=== PATIENT | female | born 1980 ===

== ENCOUNTER 2017-02-25 07:00 | Inpatient (IN) | payer MEDICAID ==
[2017-02-12 14:30] VITALS: BMI 38.2
[2017-02-25] MEDS ORDERED: Succinylcholine 200 mg/10 ml Inj IV ONE (08:03)
[2017-02-25] MEDS ORDERED: Propofol 10 mg/ml Inj (20 ML) ONE (08:03)
[2017-02-25] MEDS ORDERED: ePHEDrine 50 mg/ml Inj ONE (08:03)
[2017-02-25] MEDS ORDERED: Midazolam 2 MG/2 ML VIAL ONE (08:03)
[2017-02-25] MEDS ORDERED: Rocuronium 10 mg/ml (5 ml) ONE (08:03)
[2017-02-25] MEDS ORDERED: Phenylephrine 10 mg/ml Inj ONE (08:17)
[2017-02-25] MEDS ORDERED: Neostigmine Methylsulfate 3mg/3ml Syringe IV ONE ×2 (08:21→12:23)
[2017-02-25] MEDS ORDERED: Neostigmine Methylsulfate 2 MG/2 ML ML IV ONE (08:21)
[2017-02-25] MEDS ORDERED: ceFAZolin IV 1 gm in Dextrose 2 GM/100 ML BAG IVPB ONE (08:30)
[2017-02-25] MEDS ORDERED: Bupivacaine HCl 0.5% PF (30 ml) Inj ONE (08:30)
[2017-02-25] MEDS ORDERED: Lactated Ringer's 1,000 ML IV ONE ×3 (09:40→12:55)
[2017-02-25] MEDS ORDERED: Dexamethasone 4 mg/1 ml ONE (10:11)
[2017-02-25] MEDS ORDERED: Sevoflurane - Inhalation Anesthetic Liq (250 ml) ONE (10:34)
[2017-02-25] MEDS ORDERED: APROTININ/FIBRINOGEN(TISSEEL) ONE (11:15)
[2017-02-25] MEDS ORDERED: Albuterol 0.083% Inhal Sol (2.5 mg/3 mL) UD INH PRN (11:58)
[2017-02-25] MEDS: HYDROmorphone 0.5 mg/0.5 ml ISec IVP PRN ×4 (12:10→12:50)
--- NOTE | 2017-02-25 13:08 | PCM.SURG1 ---
Surgeon's Initial Post Op Note - Surgeon's Notes Surgeon: adriana hdz md Hot Stick Man: ervin villaseñor Type of Anesthesia: General Endo, Local Pre-Operative Diagnosis: chronioc pelvic pain. abnormal uterine bleeding. prolapse uterus. didelphis uterus Operative Findings: stage 4 endometriosis. frozen abdomin. enlarge uterus. normal rigtht ovary. left ovary with multiple small cysts Post-Operative Diagnosis: chronioc pelvic pain. abnormal uterine bleeding. prolapse uterus. didelphis uterus. stage 4 endometriosis deep endometriosis Operation Performed: Total robotic hysterectomy bilateral salpingectomy. uterosacral ligament suspenssion. extensive excision of endometriosis. ovarian drilling. extensive lysis of adhession enterolysis. cystoscopy Specimen/Specimens Removed: uterus cervix tubes. endometriosis Estimated Blood Loss: EBL {In ML}: 10 Blood Products Given: N/A Drains Used: No Drains Post-Op Condition: Good Date of Surgery/Procedure: 02/25/17 Time of Surgery/Procedure: 11:00
[2017-02-25] MEDS ORDERED: HYDROmorphone 0.5 mg/0.5 ml ISec IVP PRN (15:03)
[2017-02-25] MEDS ORDERED: Oxycodone/Acetaminophen 5/325 mg Tab PO PRN (16:16)
[2017-02-25] MEDS: ceFAZolin IV 2 gm in Dextrose 2 GM/50 ML BAG IVPB SCH (17:37)
[2017-02-25] MEDS: Lactated Ringer's 1,000 ML IV SCH (17:38)
--- NOTE | 2017-02-25 20:47 | PCM.OP ---
Operative Report - Operative Report Date of Surgery/Procedure: 02/25/17 Time of Surgery/Procedure: 11:00 Surgeon: Jcarlos Hare MD Solar Lab Technician: Lorna MCCORD Anesthesia/Sedation: Gen. anesthesia with ET tube Pre-Operative Diagnosis: Chronioc pelvic pain. Abnormal uterine bleeding. Prolapse uterus. Didelphys uterus Post-Operative Diagnosis: Chronioc pelvic pain. Abnormal uterine bleeding. Prolapse uterus. Didelphys uterus. stage 4 endometriosis / deep endometriosis. polycystic ovarian syndrome Indication for Surgery: worsening chronic pelvic pain and abnormal uterine bleeding as well as associated prolapse uterus Operative Findings: Extensive and severe endometriosis throughout including deep endometriosis along the LEFT pelvic sidewall. 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 Polycystic ovarian syndrome. Normal bladder anatomy as cystoscopy at the end of the procedure Procedure/Operation Description: Detailed Operative Report. This is a 36 years old female with symptomatic enlarged uterine prolapse, severe pelvic pain, abnormal uterine bleeding history of didelphys uterus. The patient completed an extensive preoperative workup, which included an ultrasound , as well as a Pap smear, chemistry and hematology studies. The patient reported these symptoms and problems as debilitating, and adversely affecting her quality of life. Following a period of failed conservative management, and patient decision was made to proceed with a more invasive approach to address the above noted problems. A decision was finally made to proceed with a total robotic assisted hysterectomy, possible bilateral salpingoophorectomy, and vaginal vault suspension. A detailed description of this robotic procedure was given to the patient, all risks and benefits of the surgical modality was reviewed, printed material was also given to the patient regarding robotic surgery. The patient fully understood all the risks and benefits and elected to proceed with this proposed procedure. The patient expressed strong desire for this definitive surgical procedure, understanding that she cannot conceive or carry any pregnancies in the future. The patient had absolutely without any doubts, any desires for future pregnancies. After proper consent was obtained from the patient was taken to the operating room, proper patient identification was completed. She was placed in dorsal lithotomy position; general anesthesia was induced without difficulty. Her legs were placed in adjustable Srinivasa stirrups. Careful attention was placed to ovoid over-flexion or over-rotation of the lower extremities at the hip or the knee joints. She was prepped and draped appropriately for robotic assisted hysterectomy. Eastman catheter was inserted under sterile conditions. A weighted speculum was placed in the vagina , the cervix was noted to be severely displaced to the RIGHT side, anterior lip of cervix was grasped with a tenaculum, and a V-care uterine manipulator was inserted through the cervix and secured. The weighted speculum and tenaculum were removed from the patient's vagina and attention was turned to the patient' s abdomen. Local anesthetic solutions of 0.25% Marcaine with epinephrine were utilized to infiltrate the skin prior to all abdominal skin incisions. A total of 20 mL of 0.25% Marcaine was utilized throughout the procedure. While tenting the abdominal wall, a Veres needle was inserted through the umbilicus and a pneumoperitoneum was obtained. Intraperitoneal access was verified with a drop in intraperitoneal pressure. Approximately at the umbilical fold, in the midline, a 1 cm incision was made with a scalpel and a trocar and sleeve were introduced. A robotic camera was inserted and an initial survey of the patient's abdomen revealed an enlarged bulky uterus, boggy in appearance suspicious for adenomyosis and possible fibroids. The uterus appeared asymmetrical with significant enlargement of the LEFT horn. Extensive endometriosis disease was noted throughout the pelvic cavity with a lesions along the posterior cul-de-sac extending to the pelvic brim and above. Of note , deep endometriosis were noted on the LEFT pelvic sidewall in close proximity to the ureter and the great vessels within the LEFT adnexa. Extensive endometriosis lesions in close proximity to the LEFT ovary causing severe adhesions to the pelvic sidewall and to the uterus engulfing the LEFT fallopian tube. Similarly, extensive destructive endometriosis lesions were noted on the opposite pelvic sidewall involving the opposite ovary. Extensive endometriosis lesions involving multiple loops of bowel as well as the rectum was noted. The RIGHT ovary appeared polycystic, the LEFT ovary appeared enlarged with multiple simple-like cysts, a picture consistent with PCOS. The patient was placed in Trendelenburg position ready for a da Johana robotic system to be docked. 3 robotic ports were utilized for this procedure. The first robotic port was placed on the patient's left side approximately 5 cm superior to the superior crest on the patient's left side, the second robotic port was placed 8 cm right lateral to the camera port and the third robotic port was placed approx. 5 centimeters superior to the right superior iliac crest. All ports were aligned along the same horizontal line on the abdomen in an arch like fashion. An assistant spa manager port was placed 8 cm left lateral to the camera port in the midline. For the assistant spa manager port we utilized the [employer] trocar system. All trocars were inserted under direct visualization. The placement of the trocars was all accomplished under careful and meticulous placement under direct visualization. Following the placement of all trocars, the da Johana robotic system was docked in a parallel method without difficulty. The following instruments were utilized for this procedure: the bipolar cautery device, a monopolar rigo and finally a ProGrasp. Prior to the start of the hysterectomy, extensive and meticulous lysis of peritoneal adhesions as well as bowel adhesions was achieved utilizing sharp and blunt dissection. Extensive excisions of multiple endometriosis lesions, wide excisions of these lesions was accomplished utilizing sharp and blunt dissections. All excisions were labeled appropriately and sent to pathology. Due to the close proximity of this endometriosis lesions both ureters, the retroperitoneum was entered along the pelvic sidewall and the ureters were explored from the pelvic brim all the way down towards the uterocervical junction. Both ureters and their courses were visualized, peristalsis bilaterally. Both ovaries which appeared to be polycystic enlarged were drilled decompressed volume of clear fluid contained within multiple cysts. Meticulous slow and careful dissection was needed to excise and separate the LEFT ovary and tube from the pelvic sidewall in close proximity to the LEFT iliac vessels as well as LEFT ureter. Both fallopian tubes were transected along the mesosalpinx to be removed over the uterus and cervix en bloc. On the patient's right side, the utero-ovarian and round ligaments were identified cauterized and transected, the broad ligament was divided all the way down to the utero cervical junction bladder flap was then created by transecting the visceroperitoneum over the bladder reflection. In a similar fashion, the left round ligament, utero-ovarian ligament and broad ligament were cauterized sealed and transected, taken down to the level of the cervical uterine junction. Uterine vessels on both sides were sealed and transected. The Uterosacral ligaments were sealed and transected. The monopolar rigo and PK were utilized to complete the colpotomy incision around the care vaginal ring. Excellent hemostasis was noted. The uterus, cervix and fallopian tubes were delivered transvaginally through the colpotomy incision and sent to pathology for permanent analysis. The colpotomy incision was closed with 2-0 v LOC in a continuous fashion with excellent hemostasis. The vaginal vault suspension was achieved by suspending the vaginal cuff to the base of the uterosacral ligaments bilaterally. For uterosacral ligament suspension portion of the procedure, the ureters were once again identified to avoid possible compromise or kinking while suspending the vaginal vault. A 2-0 permanent suture material ([place]) was utilized to suspend the uterosacral ligaments from the base to the vaginal vault cuff incision including both anterior and posterior aspect of the colpotomy incision. Utilizing a 3-0 Monocryl suture, the peritoneum over the colpotomy incision and uterosacral ligaments was re- approximated in a continuous fashion. The abdomen was throughout irrigated and cleared of all clots and debris. FloSeal as well as Interceed was applied to the incision sites. Excellent hemostasis was again noted. All robotic and laparoscopic instruments removed under direct visualization. The robotic arms were undocked, and a da Johana robotic system was wheeled away from the patient' s bedside. Both assistant spa manager and camera ports were closed at the fascial layer utilizing a 2-0 Vicryl suture material in interrupted fashion. Pneumoperitoneum was reduced and all skin incisions were closed utilizing 4-0 Monocryl in a subcutaneous fashion. Dermabond was applied to all incisions. At the conclusion of this hysterectomy, a diagnostic cystoscopy was completed. The Eastman catheter was removed; the bladder was distended with approximately 350 cc of normal saline. A 30 cystoscope was introduced and a survey of the bladder anatomy was completed. The base, and the dome of the bladder appeared normal, both ureteral orifices appeared normal and were efluxing urine freely. The urethra appeared normal. A Eastman catheter was reinserted. Vaginal packing was inserted to be removed the next morning. Patient emerged from general anesthesia without difficulty, and was taken to recovery room in stable condition. Prior to incision the patient received antibiotics, prior to closure sponge lap and needle counts were correct x2. Estimated Blood Loss: 10 Blood Replaced: none Sponge/Instrument Count: sponge lap and needle counts were correct x2 Drains: none Complications: none Specimen: uterus cervix fallopian tubes and endometriosis Discharge & Condition: discharge planning postoperative day #1 is met criteria
[2017-02-25 22:06] VITALS: RESP 20
[2017-02-26] MEDS: ceFAZolin IV 2 gm in Dextrose 2 GM/50 ML BAG IVPB SCH ×2 (00:36→08:34)
[2017-02-26] MEDS: Lactated Ringer's 1,000 ML IV SCH (06:26)
[2017-02-26 06:28] LABS: BASO # 0.1 K/uL (0.0-0.2); BASO % 0.6 % (0.0-2.0); EOS % 0.3 % (0.0-4.0); HEMOGLOBIN 12.7 g/dL (12.0-16.0); LYMPH # 1.7 K/uL (1.0-4.3); LYMPH % 18.3 % (20.0-40.0); MEAN CELL VOLUME 89.4 fl (81.0-99.0); MEAN CORPUSCULAR HEMOGLOBIN 29.8 pg (27.0-31.0); MEAN CORPUSCULAR HGB CONC 33.3 g/dL (33.0-37.0); MEAN PLATELET VOLUME 8.5 fl (7.2-11.7); MONO # 0.8 K/uL (0.0-0.8); MONO % 8.9 % (0.0-10.0); NEUT # 6.6 K/uL (1.8-7.0); NEUT % 71.9 % (50.0-75.0); RBC 4.25 Mil/uL (3.80-5.20); RED CELL DISTRIBUTION WIDTH 12.7 % (11.5-14.5); WHITE BLOOD COUNT 9.2 K/uL (4.8-10.8)
[2017-02-26 06:40] LABS: BLOOD UREA NITROGEN 10 mg/dl (7-17); CALCIUM 9.2 mg/dL (8.4-10.2); GFR AFRICAN-AMERICAN > 60; GFR NON-AFRICAN AMERICAN > 60
[2017-02-26] MEDS ORDERED: Oxycodone/Acetaminophen 5/325 mg Tab PO PRN (14:45)
--- NOTE | 2017-02-26 14:50 | CP.PCM.PN ---
Subjective - Date & Time of Evaluation Date of Evaluation: 02/26/17 Time of Evaluation: 14:47 - Subjective Subjective: Patient states pain is controlled with pain medication. She says that she feels a little itchy with the dilaudid, but no rash, no difficulty breathing. She says this is the same feeling that she gets when she takes percocet. She never got a rash or had any difficulty breathing from percocet. This appears to be side effect of the medication, but not a true allergy. Patient tolerated dilaudid well. Patient requests percocet for pain over non narcotic alternatives due to level of pain. Denies CP/SOB/dizziness. Objective - Vital Signs/Intake and Output Vital Signs (last 24 hours): Temp Pulse Resp BP Pulse Ox 98.7 F 78 20 107/63 100 02/26/17 08:25 02/26/17 08:25 02/26/17 08:25 02/26/17 08:25 02/26/17 08:25 Intake and Output: 02/26/17 02/26/17 06:59 18:59 Intake Total 1800 Output Total 2050 Balance -250 - Medications Medications: Current Medications Albuterol Sulfate (Albuterol 0.083% Inhal Samantha (2.5 Mg/3 Ml) Ud) 2.5 mg INH ONCE PRN PRN Reason: Wheezing Hydromorphone HCl (Dilaudid) 2 mg IVP Q3H PRN PRN Reason: Pain, severe (8-10) Last Admin: 02/26/17 09:48 Dose: 2 mg Cefazolin Sodium/Dextrose (Ancef Iv 2 Gm Duplex) 2 gm in 50 mls @ 50 mls/hr IVPB Q8 TEE PRN Reason: Protocol Last Admin: 02/26/17 08:34 Dose: 50 mls/hr Lactated Ringer's (Lactated Ringer's) 1,000 mls @ 100 mls/hr IV .Q10H [facility] Last Admin: 02/26/17 06:26 Dose: 100 mls/hr Ondansetron HCl (Zofran Inj) 4 mg IVP Q6 PRN PRN Reason: Nausea/Vomiting Oxycodone/Acetaminophen (Percocet 5/325 Mg Tab) 2 tab PO Q4 PRN PRN Reason: Pain, moderate (4-7) Stop: 03/01/17 14:46 - Labs Labs: 02/26/17 05:50 02/26/17 05:50 - Constitutional Appears: Well, No Acute Distress - Respiratory Exam Respiratory Exam: NORMAL BREATHING PATTERN - GI/Abdominal Exam GI & Abdominal Exam: Soft, Tenderness, Hypoactive Bowel Sounds Additional comments: incisions intact, dry - Neurological Exam Neurological Exam: Alert, Awake, Oriented x3 - Psychiatric Exam Psychiatric exam: Normal Affect, Normal Mood - Skin Skin Exam: Dry, Intact, Normal Color, Warm Assessment and Plan (1) Endometriosis Assessment & Plan: POD#1 s/p robotic assisted laparoscopic resection of endo -will give percocet while monitored in hospital -plan d/c home today -instructed activity as tolerated -stool softener -f/u 2 week call for appt -d/w gena Matthews withabove Status: Acute
[2017-02-26 16:32] VITALS: BP 101/53; PULSE 78; TEMP 99.8; O2SAT 99
== END 2017-02-26 18:02 | disposition home or self-care (01) | DRG 359 ==
LOC: H.OPSURG 07:00 → H.PEDS 16:16
PROVIDERS: ADMIT Obstetrics & Gynecology; ATTEND Obstetrics & Gynecology
PROC: 0DNW0ZZ Release Peritoneum, Open Approach (ICD-10-PCS; 2017-02-25)
PROC: 8E0W0CZ Robotic Assisted Procedure of Trunk Region, Open Approach (ICD-10-PCS; 2017-02-25)
PROC: 0TJB8ZZ Inspection of Bladder, Via Natural or Artificial Opening Endoscopic (ICD-10-PCS; 2017-02-25)
PROC: 0UT90ZZ Resection of Uterus, Open Approach (ICD-10-PCS; principal; 2017-02-25 09:00)
PROC: 0UT70ZZ Resection of Bilateral Fallopian Tubes, Open Approach (ICD-10-PCS; 2017-02-25 09:00)
DX: N80.3 Endometriosis of pelvic peritoneum (principal); E28.2 Polycystic ovarian syndrome; N73.6 Female pelvic peritoneal adhesions (postinfective); N80.1 Endometriosis of ovary; N80.5 Endometriosis of intestine; N81.4 Uterovaginal prolapse, unspecified; N93.9 Abnormal uterine and vaginal bleeding, unspecified; Q51.2 Other doubling of uterus; Z88.6 Allergy status to analgesic agent; Z91.040 Latex allergy status